=== PATIENT | male | born 1960 | race American Indian/Alaskan Native ===

== ENCOUNTER 2018-04-28 13:34 | Outpatient (CLI) | payer BC ==
--- NOTE | 2018-05-03 12:27 | Cat Scan Report ---
CT ABDOMEN PELVIS WITHOUT CONTRAST: HISTORY: Gross hematuria. COMPARISON: CT abdomen pelvis with and without contrast performed 04/30/16. TECHNIQUE: Helical CT in 1.25mm intervals without IV contrast. Sagittal and coronal reconstructions. Comment: This examination is just presented to me for interpretation. FINDINGS: Lung bases: Normal. Liver: The liver remains normal size and contour. A 1.8 cm ill-defined hypodensity in the anterior liver is unchanged and consistent with a cavernous hemangioma on the previous exam. No suspicious liver mass is appreciated. Biliary system: Normal. Pancreas: Normal. Spleen: Normal. Kidneys/ureters/bladder: The kidneys are normal size, contour and position. There are 3 hypodensities in the mid and superior left kidney measuring 1.2 cm, 1.4 cm and 2.8 cm which are consistent with cysts. No evidence for renal mass. No nephrolithiasis is appreciated. The ureters are normal course and caliber. The bladder is partially empty but unremarkable. Radiotherapy beads are noted in the prostate bed. Adrenal glands: Normal. Aorta: Mild scattered calcific plaques. No aneurysm. Intestines: Unremarkable given no oral contrast was administered. Appendix: Not confidently identified, correlate with surgical history. Pelvic viscera: Normal. Ascites: None. Adenopathy: None. Musculoskeletal: Moderate degenerative disc disease at L4-5 and L5-S1. No fracture or suspicious bony lesion. IMPRESSION: Unremarkable CT scan of the abdomen and pelvis without contrast. No clear explanation for gross hematuria. Cavernous angioma the liver, unchanged. Left renal cysts, unchanged.
== END 2018-04-28 13:35 | disposition home or self-care (01) ==
LOC: CT 13:34
PROVIDERS: ATTEND Urology
DX: R31.0 Gross hematuria (principal); D18.09 Hemangioma of other sites; N28.1 Cyst of kidney, acquired; M47.897 Other spondylosis, lumbosacral region
CPT/HCPCS: 74176